=== PATIENT | female | born 1950 | race Caucasian/White ===

== ENCOUNTER 2022-05-15 14:32 | Inpatient (IN) | payer MEDICAID ==
[~2022-05-15] VITALS: Ht 165.1 cm; Wt 103.4 kg
[~2022-05-15 14:32] MED LIST: BENA-8 MT; GLIP10TA10 MT; METF-416 MT
[2022-05-15] MEDS ORDERED: ATROPINE SULFATE 1MG/ML VIAL IV ONE (16:00)
[2022-05-15 16:09] LABS: CHLORIDE 91 mEq/L (98-107); MEAN CORPUSCULAR HEMOGLOBIN 29.2 pg (28.0-32.0); MEAN CORPUSCULAR VOLUME 94.2 fL (81.0-99.0); MEAN PLATELET VOLUME 9.3 fl (7.4-10.4); PLATELET 312 x1000/uL (130-400); RED BLOOD CELL COUNT 2.29 mill/uL (4.2-5.4); RED CELL DISTRIBUTION WIDTH 18.2 % (11.6-14.6)
[2022-05-15 16:11] LABS: PROTHROMBIN TIME 10.5 sec (9.6-11.0)
[2022-05-15 16:14] LABS: HEMOGLOBIN. 6.7 g/dL (12.0-16.0)
[2022-05-15 16:15] LABS: HEMATOCRIT. 21.6 % (36.0-48.0)
[2022-05-15] MEDS ORDERED: CEFTRIAXONE 1 G PREMIX 50 ML IV NR (16:45)
[2022-05-15] MEDS ORDERED: ATROPINE SULFATE 1MG/10ML SYR IV ONE (16:45)
[2022-05-15] MEDS ORDERED: DOXYCYCLINE HYCLATE 100 MG/VIAL IV ONE (16:45)
[2022-05-15] MEDS ORDERED: INSULIN REGULAR (HUMULIN R) 300UNITS/3ML VIAL IV STA (16:51)
[2022-05-15] MEDS ORDERED: SODIUM BICARBONATE 8.4% 1 MEQ/ML 50ML SYR IV ONE (17:00)
[2022-05-15] MEDS ORDERED: CALCIUM GLUCONATE 1GM PREMIX 50 ML IV ONE (17:00)
[2022-05-15] MEDS ORDERED: ALBUTEROL (0.083%) 2.5MG/3ML NEB HHN ONE (17:00)
[2022-05-15] MEDS ORDERED: DEXTROSE 50% WATER 50ML SYRINGE IV ONE (17:00)
[2022-05-15] MEDS ORDERED: DOXYCYCLINE 100MG in DEXTROSE 5% WATER 100ML IV SCH (17:00)
[2022-05-15] MEDS ORDERED: DOBUTAMINE 250MG PREMIX 250 ML IV STA (17:41)
[2022-05-15] MEDS ORDERED: CALCIUM GLUCONATE 100MG/ML 10ML VIAL IV ONE (17:45)
[2022-05-15] MEDS ORDERED: DOBUTAMINE 250MG PREMIX 250 ML IV NR (17:48)
[2022-05-15 20:53] LABS: CLARITY URINE CLEAR (CLEAR); COLOR URINE YELLOW (YELLOW)
[2022-05-15 20:54] LABS: KETONES URINE NEGATIVE (NEGATIVE); LEUKOCYTE ESTERASE URINE NEGATIVE (NEGATIVE); NITRITE URINE NEGATIVE (NEGATIVE); OCCULT BLOOD URINE NEGATIVE (NEGATIVE); PROTEIN URINE NEGATIVE (NEGATIVE); UROBILINOGEN URINE 0.2 E.U./dL (0.2-1.0)
[2022-05-15 22:26] LABS: PLATELET ESTIMATE NORMAL
[2022-05-16] VITALS (87 sets, daily range): BP systolic 50–164; BP diastolic 14–104
[2022-05-16] MEDS ORDERED: DEXTROSE 50% WATER 50ML SYRINGE IV PRN
[2022-05-16] MEDS ORDERED: IPRATROPIUM/ALBUTEROL 0.5-3(2.5)MG/3ML NEB HHN PRN
[2022-05-16] MEDS ORDERED: DEXT 5%/0.9% NACL 1,000 ML IV SCH (00:15)
[2022-05-16] MEDS: IPRATROPIUM/ALBUTEROL 0.5-3(2.5)MG/3ML NEB HHN SCH ×4 (01:19→19:38)
[2022-05-16] MEDS: DOPAMINE 800MG PREMIX (DOUBLE) 250 ML IV PRN ×3 (01:20→21:06)
[2022-05-16] MEDS ORDERED: VANCOMYCIN 2,000 MG in SODIUM CHLORIDE 0.9% 500 ML IV NR (01:30)
[2022-05-16] MEDS ORDERED: INSULIN REGULAR (HUMULIN R) 300UNITS/3ML VIAL IV NR ×4 (01:45→22:00)
[2022-05-16] MEDS ORDERED: CALCIUM GLUCONATE 1GM PREMIX 50 ML IV NR ×2 (01:45→06:15)
[2022-05-16] MEDS ORDERED: NOREPINEPHRINE 32 MG in DEXT 5% WATER 218 ML IV PRN (01:45)
[2022-05-16] MEDS ORDERED: ATROPINE SULFATE 1MG/10ML SYR IV NR (01:45)
[2022-05-16] MEDS ORDERED: SODIUM BICARBONATE 8.4% 1 MEQ/ML 50ML SYR IV NR ×2 (01:45→06:15)
[2022-05-16] MEDS ORDERED: DEXTROSE 50% WATER 50ML SYRINGE IV NR ×4 (01:45→22:00)
[2022-05-16] MEDS: BLOOD SUGAR DIAGNOSTIC STRIP TEST SCH ×4 (05:25→21:02)
[2022-05-16] MEDS: PIPERACILLIN/TAZOBACTAM 3.375 G in DEXTROSE 5% WATER 50 ML IV SCH ×3 (05:26→21:06)
[2022-05-16] MEDS: INSULIN LISPRO 100 UNITS/ML SUBCUT SCH ×4 (05:28→21:00)
[2022-05-16 05:37] LABS: HEMOGLOBIN 7.6 g/dL (12.0-16.0); MEAN CORPUSCULAR HEMOGLOBIN 30.6 pg (28.0-32.0); MEAN CORPUSCULAR VOLUME 97.1 fL (81.0-99.0); PLATELET 246 x1000/uL (130-400); RED BLOOD CELL COUNT 2.47 mill/uL (4.2-5.4); RED CELL DISTRIBUTION WIDTH 17.6 % (11.6-14.6)
[2022-05-16 05:43] LABS: CHLORIDE 93 mEq/L (98-107)
[2022-05-16] MEDS ORDERED: SODIUM POLYSTYRENE SULFONATE 15 G/60 ML BOT PO NR ×3 (06:15→22:00)
[2022-05-16] MEDS ORDERED: LACTULOSE 20G/30ML UDC PO NR (06:15)
[2022-05-16] MEDS ORDERED: ATROPINE SULFATE 1MG/ML VIAL IV PRN (06:30)
[2022-05-16 08:45] LABS: BG BASE EXCESS 1.8 mmol/L (-2.0-2.0); BG CARBOXYHEMOGLOBIN 0.4 % (0.5-1.5); BG DEOXYHEMOGLOBIN 9.1 % (0.0-5.0); BG FRACTION INSPIRED OXYGEN 50; BG HCO3 ACT 26.6 mmol/L (22.0-26.0); BG OXYGEN SATURATION 90.9 % (92.0-98.5); BG OXYHEMOGLOBIN 90.5 % (94.0-97.0); BG PCO2 42.7 mmHg (35.0-45.0); BG PH 7.412 (7.350-7.450); BG PO2 59.7 mmHg (75.0-100.0); BG SAMPLE SITE LEFT RADIAL; BG TOTAL HEMOGLOBIN 9.5 g/dL (12.0-18.0); BG VENT MODE VENT - AC
[2022-05-16] MEDS ORDERED: ENOXAPARIN 40MG/0.4ML SYR SUBCUT SCH (09:00)
[2022-05-16] MEDS: PANTOPRAZOLE SODIUM 40 MG/VIAL IV SCH (09:21)
[2022-05-16] MEDS ORDERED: METOLAZONE 2.5MG TABLET PEG NR (09:30)
[2022-05-16] MEDS: FUROSEMIDE 100MG/10ML VIAL IVP SCH ×3 (09:31→17:40)
[2022-05-16 13:14] LABS: CHLORIDE 91 mEq/L (98-107)
[2022-05-16 13:30] LABS: T4 FREE 1.07 ng/dL (0.76-1.46)
[2022-05-16 16:27] LABS: CHLORIDE 93 mEq/L (98-107)
[2022-05-16 17:15] LABS: SODIUM URINE RANDOM 31 mEq/L
[2022-05-16] MEDS: METOLAZONE 5MG TABLET PEG SCH (17:40)
[2022-05-16] MEDS: VANCOMYCIN 1GM PMX (XELLIA) 200 ML IV SCH (20:11)
[2022-05-16 20:52] LABS: CHLORIDE 93 mEq/L (98-107)
[2022-05-16] MEDS ORDERED: CALCIUM CHLORIDE 1,000 MG in DEXT 5% WATER 90 ML IV NR (23:00)
[2022-05-17] VITALS (90 sets, daily range): BP systolic 94–159; BP diastolic 19–96
[2022-05-17] MEDS: IPRATROPIUM/ALBUTEROL 0.5-3(2.5)MG/3ML NEB HHN SCH ×4 (01:54→20:25)
[2022-05-17 04:09] LABS: HEMATOCRIT. 26.3 % (36.0-48.0); HEMOGLOBIN. 8.4 g/dL (12.0-16.0); MEAN CORPUSCULAR HEMOGLOBIN 29.7 pg (28.0-32.0); MEAN CORPUSCULAR VOLUME 92.6 fL (81.0-99.0); MEAN PLATELET VOLUME 9.6 fl (7.4-10.4); PLATELET 311 x1000/uL (130-400); RED BLOOD CELL COUNT 2.84 mill/uL (4.2-5.4); RED CELL DISTRIBUTION WIDTH 17.3 % (11.6-14.6)
[2022-05-17 04:16] LABS: CHLORIDE 91 mEq/L (98-107)
[2022-05-17 04:27] LABS: CREATINE KINASE 32 IU/L (26-192); PHOSPHORUS 5.3 mg/dL (2.5-4.9)
[2022-05-17] MEDS: BLOOD SUGAR DIAGNOSTIC STRIP TEST SCH ×4 (06:13→21:08)
[2022-05-17] MEDS: INSULIN LISPRO 100 UNITS/ML SUBCUT SCH ×4 (06:13→21:00)
[2022-05-17] MEDS: PIPERACILLIN/TAZOBACTAM 3.375 G in DEXTROSE 5% WATER 50 ML IV SCH ×3 (06:36→21:08)
[2022-05-17] MEDS: DOPAMINE 800MG PREMIX (DOUBLE) 250 ML IV PRN (06:36)
[2022-05-17] MEDS ORDERED: SODIUM BICARBONATE 8.4% 1 MEQ/ML 50ML SYR IV SCH (09:00)
[2022-05-17] MEDS ORDERED: DEXTROSE 50% WATER 50ML SYRINGE IV SCH (09:00)
[2022-05-17] MEDS ORDERED: INSULIN REGULAR (HUMULIN R) 300UNITS/3ML VIAL IV SCH (09:00)
[2022-05-17] MEDS ORDERED: ENOXAPARIN 30MG/0.3ML SYR SUBCUT SCH (09:00)
[2022-05-17] MEDS: METOLAZONE 5MG TABLET PEG SCH ×2 (09:32→17:36)
[2022-05-17] MEDS: PANTOPRAZOLE SODIUM 40 MG/VIAL IV SCH (09:32)
[2022-05-17] MEDS: FUROSEMIDE 100MG/10ML VIAL IVP SCH ×3 (09:32→17:36)
[2022-05-17] MEDS: CITRIC ACID/SODIUM CITRATE SOLN 30ML UDC GT SCH ×3 (09:37→17:35)
[2022-05-17 10:23] LABS: PLATELET ESTIMATE NORMAL
[2022-05-17 10:44] LABS: BG BASE EXCESS 4.9 mmol/L (-2.0-2.0); BG CARBOXYHEMOGLOBIN 0.6 % (0.5-1.5); BG DEOXYHEMOGLOBIN 0.8 % (0.0-5.0); BG FRACTION INSPIRED OXYGEN 80; BG HCO3 ACT 30.6 mmol/L (22.0-26.0); BG METHEMOGLOBIN 0.4 % (0.0-1.5); BG OXYGEN SATURATION 99.2 % (92.0-98.5); BG OXYHEMOGLOBIN 98.2 % (94.0-97.0); BG PCO2 51.9 mmHg (35.0-45.0); BG PH 7.389 (7.350-7.450); BG PO2 148.3 mmHg (75.0-100.0); BG SAMPLE SITE RIGHT RADIAL; BG TOTAL HEMOGLOBIN 8.8 g/dL (12.0-18.0); BG VENT MODE VENT - AC
[2022-05-17] MEDS: VANCOMYCIN 1GM PMX (XELLIA) 200 ML IV SCH (14:00)
[2022-05-17] MEDS: DEXTROSE 10% WATER 500 ML IV SCH (17:36)
[2022-05-17] MEDS: BUDESONIDE 0.5MG/2ML NEB HHN SCH (20:24)
[2022-05-17 21:22] LABS: CHLORIDE 93 mEq/L (98-107)
[2022-05-18] VITALS (83 sets, daily range): BP systolic 66–150; BP diastolic 25–73
[2022-05-18] MEDS: IPRATROPIUM/ALBUTEROL 0.5-3(2.5)MG/3ML NEB HHN SCH ×4 (01:10→20:47)
[2022-05-18 04:46] LABS: HEMATOCRIT. 22.7 % (36.0-48.0); HEMOGLOBIN. 7.2 g/dL (12.0-16.0); MEAN CORPUSCULAR HEMOGLOBIN 29.9 pg (28.0-32.0); MEAN CORPUSCULAR VOLUME 93.6 fL (81.0-99.0); MEAN PLATELET VOLUME 9.4 fl (7.4-10.4); PLATELET 198 x1000/uL (130-400); RED BLOOD CELL COUNT 2.42 mill/uL (4.2-5.4); RED CELL DISTRIBUTION WIDTH 17.4 % (11.6-14.6)
[2022-05-18] MEDS: DOPAMINE 800MG PREMIX (DOUBLE) 250 ML IV PRN (05:22)
[2022-05-18] MEDS: INSULIN LISPRO 100 UNITS/ML SUBCUT SCH ×4 (06:18→21:00)
[2022-05-18] MEDS: BLOOD SUGAR DIAGNOSTIC STRIP TEST SCH ×4 (06:18→21:13)
[2022-05-18] MEDS: PIPERACILLIN/TAZOBACTAM 3.375 G in DEXTROSE 5% WATER 50 ML IV SCH ×3 (06:30→21:15)
[2022-05-18] MEDS: BUDESONIDE 0.5MG/2ML NEB HHN SCH (08:35)
[2022-05-18 08:53] LABS: BG BASE EXCESS 3.9 mmol/L (-2.0-2.0); BG CARBOXYHEMOGLOBIN 0.8 % (0.5-1.5); BG DEOXYHEMOGLOBIN 1.9 % (0.0-5.0); BG FRACTION INSPIRED OXYGEN 50; BG HCO3 ACT 27.8 mmol/L (22.0-26.0); BG METHEMOGLOBIN 0.2 % (0.0-1.5); BG OXYGEN SATURATION 98.1 % (92.0-98.5); BG OXYHEMOGLOBIN 97.1 % (94.0-97.0); BG PCO2 38.6 mmHg (35.0-45.0); BG PH 7.475 (7.350-7.450); BG PO2 98.2 mmHg (75.0-100.0); BG SAMPLE SITE RIGHT RADIAL; BG TOTAL HEMOGLOBIN 7.7 g/dL (12.0-18.0); BG VENT MODE VENT - AC
[2022-05-18] MEDS: PANTOPRAZOLE SODIUM 40 MG/VIAL IV SCH (09:24)
[2022-05-18] MEDS: METOLAZONE 5MG TABLET PEG SCH ×2 (09:24→18:11)
[2022-05-18] MEDS: FUROSEMIDE 100MG/10ML VIAL IVP SCH ×3 (09:24→18:11)
[2022-05-18 09:27] LABS: NUCLEATED RED BLOOD CELLS 1 /100 WBC
[2022-05-18 09:28] LABS: PLATELET ESTIMATE NORMAL
[2022-05-18] MEDS ORDERED: BISACODYL 10MG SUPP PR PRN (11:15)
[2022-05-18] MEDS: METOCLOPRAMIDE HCL 10MG/2ML VIAL IV SCH ×3 (12:03→23:18)
[2022-05-18] MEDS ORDERED: LIDOCAINE HCL 1% 30ML VIAL (10MG/ML) ONE (13:22)
[2022-05-18] MEDS: DEXTROSE 10% WATER 500 ML IV SCH (18:11)
[2022-05-19] VITALS (74 sets, daily range): BP systolic 110–159; BP diastolic 48–79
[2022-05-19] MEDS: IPRATROPIUM/ALBUTEROL 0.5-3(2.5)MG/3ML NEB HHN SCH ×4 (01:02→20:47)
[2022-05-19 05:20] LABS: MEAN CORPUSCULAR HEMOGLOBIN 30.3 pg (28.0-32.0); MEAN CORPUSCULAR VOLUME 94.1 fL (81.0-99.0); MEAN PLATELET VOLUME 9.5 fl (7.4-10.4); PLATELET 155 x1000/uL (130-400); RED BLOOD CELL COUNT 2.19 mill/uL (4.2-5.4); RED CELL DISTRIBUTION WIDTH 17.6 % (11.6-14.6)
[2022-05-19 05:34] LABS: HEMATOCRIT. 20.6 % (36.0-48.0)
[2022-05-19] MEDS: BLOOD SUGAR DIAGNOSTIC STRIP TEST SCH ×3 (05:34→21:00)
[2022-05-19] MEDS: PIPERACILLIN/TAZOBACTAM 3.375 G in DEXTROSE 5% WATER 50 ML IV SCH ×3 (05:34→21:57)
[2022-05-19] MEDS: METOCLOPRAMIDE HCL 10MG/2ML VIAL IV SCH ×3 (05:34→17:51)
[2022-05-19 05:37] LABS: HEMOGLOBIN. 6.6 g/dL (12.0-16.0)
[2022-05-19 06:00] LABS: PHOSPHORUS 6.1 mg/dL (2.5-4.9)
[2022-05-19] MEDS: INSULIN LISPRO 100 UNITS/ML SUBCUT SCH ×4 (06:17→21:00)
[2022-05-19 07:33] LABS: BG BASE EXCESS -2.2 mmol/L (-2.0-2.0); BG CARBOXYHEMOGLOBIN 0.6 % (0.5-1.5); BG DEOXYHEMOGLOBIN 0.9 % (0.0-5.0); BG HCO3 ACT 21.1 mmol/L (22.0-26.0); BG METHEMOGLOBIN 0.2 % (0.0-1.5); BG OXYGEN SATURATION 99.1 % (92.0-98.5); BG OXYHEMOGLOBIN 98.3 % (94.0-97.0); BG PH 7.465 (7.350-7.450); BG PO2 123.5 mmHg (75.0-100.0); BG SAMPLE SITE RIGHT RADIAL; BG TOTAL HEMOGLOBIN 7.6 g/dL (12.0-18.0); BG VENT MODE VENT - AC
[2022-05-19 08:42] LABS: PLATELET ESTIMATE NORMAL
[2022-05-19] MEDS: DEXT 5%/0.9% NACL 1,000 ML IV SCH (08:47)
[2022-05-19] MEDS: METOLAZONE 5MG TABLET PEG SCH ×2 (08:48→17:51)
[2022-05-19] MEDS: PANTOPRAZOLE SODIUM 40 MG/VIAL IV SCH (08:48)
[2022-05-19] MEDS: FUROSEMIDE 40MG/4ML VIAL IVP SCH ×3 (08:48→17:51)
[2022-05-19] MEDS ORDERED: POTASSIUM CHLORIDE INJ 40 MEQ in DEXT 5% WATER 250 ML IV ONE (09:00)
[2022-05-20] VITALS (15 sets, daily range): BP systolic 125–147; BP diastolic 59–91
[2022-05-20] MEDS: METOCLOPRAMIDE HCL 10MG/2ML VIAL IV SCH ×5 (00:24→23:40)
[2022-05-20] MEDS: IPRATROPIUM/ALBUTEROL 0.5-3(2.5)MG/3ML NEB HHN SCH ×4 (01:54→21:55)
[2022-05-20] MEDS: PIPERACILLIN/TAZOBACTAM 3.375 G in DEXTROSE 5% WATER 50 ML IV SCH ×3 (05:27→21:29)
[2022-05-20 05:58] LABS: PHOSPHORUS 5.6 mg/dL (2.5-4.9)
[2022-05-20 06:42] LABS: HEMATOCRIT. 28.5 % (36.0-48.0); HEMOGLOBIN. 9.4 g/dL (12.0-16.0); MEAN CORPUSCULAR VOLUME 91.1 fL (81.0-99.0); MEAN PLATELET VOLUME 9.8 fl (7.4-10.4); PLATELET 140 x1000/uL (130-400); RED BLOOD CELL COUNT 3.13 mill/uL (4.2-5.4); RED CELL DISTRIBUTION WIDTH 16.8 % (11.6-14.6)
[2022-05-20] MEDS: BLOOD SUGAR DIAGNOSTIC STRIP TEST SCH ×4 (07:30→20:41)
[2022-05-20] MEDS: INSULIN LISPRO 100 UNITS/ML SUBCUT SCH ×4 (08:00→23:40)
[2022-05-20] MEDS: FUROSEMIDE 40MG/4ML VIAL IVP SCH ×2 (10:08→19:01)
[2022-05-20] MEDS: DEXT 5%/0.9% NACL 1,000 ML IV SCH (10:08)
[2022-05-20] MEDS: PANTOPRAZOLE SODIUM 40 MG/VIAL IV SCH (10:08)
[2022-05-20 10:11] LABS: NUCLEATED RED BLOOD CELLS 1 /100 WBC; PLATELET ESTIMATE NORMAL
[2022-05-20] MEDS: KCL 20MEQ/100ML PREMIX 100 ML IV SCH ×2 (10:53→12:35)
[2022-05-20] MEDS ORDERED: ACETYLCYSTEINE 100MG/ML 10% VIAL 4ML INH SCH (14:00)
[2022-05-20] MEDS ORDERED: VANCOMYCIN 1G PREMIX 200 ML IV SCH (21:00)
[2022-05-21] VITALS (12 sets, daily range): BP systolic 103–131; BP diastolic 47–59
[2022-05-21] MEDS: IPRATROPIUM/ALBUTEROL 0.5-3(2.5)MG/3ML NEB HHN SCH ×4 (00:36→19:39)
[2022-05-21] MEDS: ACETYLCYSTEINE 200MG/ML 20% VIAL 4ML INH SCH (00:36)
[2022-05-21] MEDS: FUROSEMIDE 40MG/4ML VIAL IVP SCH ×2 (06:08→18:08)
[2022-05-21] MEDS: PIPERACILLIN/TAZOBACTAM 3.375 G in DEXTROSE 5% WATER 50 ML IV SCH ×3 (06:08→21:24)
[2022-05-21] MEDS: METOCLOPRAMIDE HCL 10MG/2ML VIAL IV SCH ×3 (06:08→18:08)
[2022-05-21 07:02] LABS: HEMATOCRIT. 29.1 % (36.0-48.0); HEMOGLOBIN. 9.6 g/dL (12.0-16.0); MEAN CORPUSCULAR HEMOGLOBIN 29.7 pg (28.0-32.0); MEAN CORPUSCULAR VOLUME 90.2 fL (81.0-99.0); MEAN PLATELET VOLUME 9.1 fl (7.4-10.4); PLATELET 98 x1000/uL (130-400); RED BLOOD CELL COUNT 3.23 mill/uL (4.2-5.4)
[2022-05-21 07:34] LABS: BG BASE EXCESS 4.8 mmol/L (-2.0-2.0); BG CARBOXYHEMOGLOBIN 0.4 % (0.5-1.5); BG DEOXYHEMOGLOBIN 2.8 % (0.0-5.0); BG HCO3 ACT 29.5 mmol/L (22.0-26.0); BG METHEMOGLOBIN 0.3 % (0.0-1.5); BG OXYGEN SATURATION 97.2 % (92.0-98.5); BG OXYHEMOGLOBIN 96.5 % (94.0-97.0); BG PCO2 44.6 mmHg (35.0-45.0); BG PH 7.439 (7.350-7.450); BG PO2 94.8 mmHg (75.0-100.0); BG SAMPLE SITE RIGHT RADIAL; BG TOTAL HEMOGLOBIN 10.2 g/dL (12.0-18.0); BG VENT MODE VENT - AC
[2022-05-21] MEDS: BLOOD SUGAR DIAGNOSTIC STRIP TEST SCH ×4 (08:22→21:23)
[2022-05-21] MEDS: DEXT 5%/0.9% NACL 1,000 ML IV SCH (08:30)
[2022-05-21 09:03] LABS: PLATELET ESTIMATE DECREASED
[2022-05-21] MEDS: PANTOPRAZOLE SODIUM 40 MG/VIAL IV SCH (09:18)
[2022-05-21] MEDS: INSULIN LISPRO 100 UNITS/ML SUBCUT SCH ×4 (09:20→21:25)
[2022-05-21] MEDS ORDERED: POTASSIUM CHLORIDE 20MEQ/PACKET PO NR (09:30)
[2022-05-21] MEDS ORDERED: POTASSIUM CHLORIDE INJ 60 MEQ in DEXT 5% WATER 250 ML IV ONE (09:30)
[2022-05-21] MEDS: KCL 20MEQ/100ML X 3 FOR TOTAL KCL 60MEQ/300ML IV SCH ×3 (11:52→16:23)
[2022-05-21] MEDS ORDERED: NYSTATIN POWDER 15GM TOP PRN (16:00)
[2022-05-21] MEDS ORDERED: POTASSIUM CHLORIDE INJ 40 MEQ in DEXT 5% WATER 500 ML IV NR (21:00)
[2022-05-22] VITALS (12 sets, daily range): BP systolic 117–153; BP diastolic 54–69
[2022-05-22] MEDS: METOCLOPRAMIDE HCL 10MG/2ML VIAL IV SCH ×5 (00:10→23:59)
[2022-05-22] MEDS: IPRATROPIUM/ALBUTEROL 0.5-3(2.5)MG/3ML NEB HHN SCH ×4 (02:01→20:27)
[2022-05-22] MEDS: ACETYLCYSTEINE 200MG/ML 20% VIAL 4ML INH SCH ×3 (02:02→14:30)
[2022-05-22 06:41] LABS: HEMATOCRIT. 29.3 % (36.0-48.0); HEMOGLOBIN. 9.6 g/dL (12.0-16.0); MEAN CORPUSCULAR HEMOGLOBIN 29.7 pg (28.0-32.0); MEAN CORPUSCULAR VOLUME 90.3 fL (81.0-99.0); PLATELET 70 x1000/uL (130-400); RED BLOOD CELL COUNT 3.24 mill/uL (4.2-5.4); RED CELL DISTRIBUTION WIDTH 16.7 % (11.6-14.6)
[2022-05-22] MEDS: PIPERACILLIN/TAZOBACTAM 3.375 G in DEXTROSE 5% WATER 50 ML IV SCH ×3 (06:53→21:40)
[2022-05-22] MEDS: BLOOD SUGAR DIAGNOSTIC STRIP TEST SCH ×4 (07:30→21:40)
[2022-05-22 07:55] LABS: CHLORIDE 99 mEq/L (98-107)
[2022-05-22 08:04] LABS: PHOSPHORUS 4.3 mg/dL (2.5-4.9)
[2022-05-22] MEDS: PANTOPRAZOLE SODIUM 40 MG/VIAL IV SCH (08:28)
[2022-05-22] MEDS: FUROSEMIDE 40MG/4ML VIAL IVP SCH ×2 (08:28→17:41)
[2022-05-22] MEDS: POTASSIUM CHLORIDE 20MEQ/PACKET PO SCH ×2 (08:34→08:39)
[2022-05-22 09:41] LABS: PLATELET ESTIMATE DECREASED
[2022-05-22] MEDS: INSULIN LISPRO 100 UNITS/ML SUBCUT SCH ×4 (11:02→21:39)
[2022-05-23] VITALS (9 sets, daily range): BP systolic 92–138; BP diastolic 60–70
[2022-05-23] MEDS: IPRATROPIUM/ALBUTEROL 0.5-3(2.5)MG/3ML NEB HHN SCH ×2 (01:43→09:02)
[2022-05-23] MEDS: ACETYLCYSTEINE 200MG/ML 20% VIAL 4ML INH SCH ×3 (01:43→16:35)
[2022-05-23] MEDS: PIPERACILLIN/TAZOBACTAM 3.375 G in DEXTROSE 5% WATER 50 ML IV SCH ×2 (06:13→13:50)
[2022-05-23] MEDS: METOCLOPRAMIDE HCL 10MG/2ML VIAL IV SCH ×2 (06:13→12:51)
[2022-05-23 06:49] LABS: HEMATOCRIT. 30.4 % (36.0-48.0); HEMOGLOBIN. 9.8 g/dL (12.0-16.0); MEAN CORPUSCULAR HEMOGLOBIN 29.8 pg (28.0-32.0); MEAN CORPUSCULAR VOLUME 92.1 fL (81.0-99.0); MEAN PLATELET VOLUME 10.1 fl (7.4-10.4); PLATELET 71 x1000/uL (130-400); RED BLOOD CELL COUNT 3.31 mill/uL (4.2-5.4); RED CELL DISTRIBUTION WIDTH 17.4 % (11.6-14.6)
[2022-05-23 06:51] LABS: CHLORIDE 102 mEq/L (98-107)
[2022-05-23] MEDS: BLOOD SUGAR DIAGNOSTIC STRIP TEST SCH ×2 (07:30→12:44)
[2022-05-23 08:48] LABS: PLATELET ESTIMATE DECREASED
[2022-05-23] MEDS: FUROSEMIDE 40MG/4ML VIAL IVP SCH (09:25)
[2022-05-23] MEDS: PANTOPRAZOLE SODIUM 40 MG/VIAL IV SCH (09:25)
[2022-05-23] MEDS: INSULIN LISPRO 100 UNITS/ML SUBCUT SCH ×2 (09:27→12:58)
[2022-05-23] MEDS ORDERED: POTASSIUM CHLORIDE INJ 40 MEQ in DEXT 5% WATER 500 ML IV NR (09:30)
[2022-05-23] MEDS: POTASSIUM CHLORIDE 20MEQ/PACKET PO SCH (09:41)
[2022-05-23] MEDS ORDERED: HYDROCODONE/ACETAMINOPHEN 5/325MG TABLET PO PRN (15:15)
[2022-05-23] MEDS ORDERED: NALOXONE HCL 0.4MG/ML VIAL IV PRN (15:15)
[2022-05-23] MEDS ORDERED: POTASSIUM CHLORIDE 20MEQ/PACKET PO SCH (17:00)
[2022-05-24] MEDS ORDERED: FUROSEMIDE 40MG/4ML VIAL IVP SCH (09:00)
== END 2022-05-23 17:40 | DRG 720 ==
LOC: ER 14:32 → MICUNO 17:58 → 5EST 05-19 17:50
PROVIDERS: ADMIT Internal Medicine; ATTEND Internal Medicine
PROC: 5A1955Z Respiratory Ventilation, Greater than 96 Consecutive Hours (ICD-10-PCS; principal; 2022-05-15)
PROC: 30233N1 Transfusion of Nonautologous Red Blood Cells into Peripheral Vein, Percutaneous Approach (ICD-10-PCS; 2022-05-15)
PROC: 02HV33Z Insertion of Infusion Device into Superior Vena Cava, Percutaneous Approach (ICD-10-PCS; 2022-05-16)
PROC: 02HV33Z Insertion of Infusion Device into Superior Vena Cava, Percutaneous Approach (ICD-10-PCS; 2022-05-18)
PROC: B548ZZA Ultrasonography of Superior Vena Cava, Guidance (ICD-10-PCS; 2022-05-18)
DX: A41.9 Sepsis, unspecified organism (principal); J80 Acute respiratory distress syndrome; R65.21 Severe sepsis with septic shock; J18.9 Pneumonia, unspecified organism; E43 Unspecified severe protein-calorie malnutrition; I50.33 Acute on chronic diastolic (congestive) heart failure; N17.9 Acute kidney failure, unspecified; E87.1 Hypo-osmolality and hyponatremia; D63.8 Anemia in other chronic diseases classified elsewhere; Z20.822 Contact with and (suspected) exposure to COVID-19; E78.00 Pure hypercholesterolemia, unspecified; E11.9 Type 2 diabetes mellitus without complications; E87.5 Hyperkalemia; E87.6 Hypokalemia; E88.09 Other disorders of plasma-protein metabolism, not elsewhere classified; E66.9 Obesity, unspecified; I11.0 Hypertensive heart disease with heart failure; R13.10 Dysphagia, unspecified; Z93.0 Tracheostomy status; Z99.11 Dependence on respirator [ventilator] status; Z86.73 Personal history of transient ischemic attack (TIA), and cerebral infarction without residual deficits; Z93.1 Gastrostomy status; Z68.37 Body mass index [BMI] 37.0-37.9, adult; Z79.4 Long term (current) use of insulin
CPT/HCPCS: 36415; 36573; 36600; 71045; 76604; 76700; 80048; 80053; 80202; 81003; 82375; 82533; 82550; 82805; 82962; 83036; 83735; 83880; 83930; 83935; 84100; 84132; 84145; 84300; 84439; 84443; 84481; 84484; 84550; 85025; 85027; 86850; 86900; 86920; 87070; 87426; 93005; 93306; 94002; 94003; 94640; 99291; A6261; C1725; C9113; J0461; J0610; J0696; J1250; J1265; J1815; J1940; J2543; J2765; J3370; J3480; J3490; J7040; J7042; J7060; J7608; J7626; P9016

== ENCOUNTER 2022-06-08 12:45 | Inpatient (IN) | payer MEDICAID, OTHER ==
[2022-06-08] VITALS (21 sets, daily range): BP systolic 60–127; BP diastolic 37–77
[~2022-06-08] VITALS: Ht 165.1 cm; Wt 108.0 kg
[2022-06-08] MEDS ORDERED: NOREPINEPHRINE 8MG/250ML PMX 250 ML IV STA (12:58)
[2022-06-08] MEDS ORDERED: SODIUM CHLORIDE 0.9% 1,000 ML IV ONE ×2 (13:00→21:00)
[2022-06-08] MEDS ORDERED: PIPERACILLIN/TAZ 3.375G PREMIX 50 ML IV ONE (13:15)
[2022-06-08] MEDS ORDERED: VANCOMYCIN 1G PREMIX 200 ML IV ONE (13:15)
[2022-06-08 13:31] LABS: HEMATOCRIT. 29.7 % (36.0-48.0); HEMOGLOBIN. 9.3 g/dL (12.0-16.0); MEAN CORPUSCULAR VOLUME 95.1 fL (81.0-99.0); MEAN PLATELET VOLUME 11.5 fl (7.4-10.4); PLATELET 57 x1000/uL (130-400); RED BLOOD CELL COUNT 3.12 mill/uL (4.2-5.4)
[2022-06-08 13:43] LABS: INR 1.1; PROTHROMBIN TIME 12.2 sec (9.6-11.0)
[2022-06-08 13:55] LABS: CHLORIDE 81 mEq/L (98-107)
[2022-06-08 14:18] LABS: ATYPICAL LYMPHOCYTES 1; NUCLEATED RED BLOOD CELLS 259 /100 WBC; PLATELET ESTIMATE DECREASED
[2022-06-08 14:38] LABS: CLARITY URINE TURBID (CLEAR); COLOR URINE ORANGE (YELLOW); KETONES URINE NEGATIVE (NEGATIVE); LEUKOCYTE ESTERASE URINE 3+ (NEGATIVE); NITRITE URINE NEGATIVE (NEGATIVE); OCCULT BLOOD URINE 3+ (NEGATIVE); PROTEIN URINE 3+ (NEGATIVE); SPECIFIC GRAVITY URINE 1.014 (1.005-1.030); UROBILINOGEN URINE 0.2 E.U./dL (0.2-1.0)
[2022-06-08] MEDS ORDERED: VANCOMYCIN 1,000 MG in DEXT 5% WATER 250 ML IV NR ×2 (15:45→21:00)
[2022-06-08] MEDS ORDERED: FUROSEMIDE 40MG/4ML VIAL IVP NR (19:30)
[2022-06-08] MEDS ORDERED: ACETAMINOPHEN 650MG/20.3ML UDC PO PRN (19:30)
[2022-06-08] MEDS ORDERED: CEFEPIME 2,000 MG in DEXT 5% WATER 100 ML IV SCH ×2 (20:30→22:00)
[2022-06-08] MEDS ORDERED: HEPARIN 5000 UNITS/ML VIAL SUBCUT SCH (21:00)
[2022-06-08] MEDS: METOCLOPRAMIDE 10MG/10 ML UDC PO SCH (21:03)
[2022-06-08] MEDS: BLOOD SUGAR DIAGNOSTIC STRIP TEST SCH (21:04)
[2022-06-08] MEDS: INSULIN LISPRO 100 UNITS/ML SUBCUT SCH (21:06)
[2022-06-08] MEDS: NOREPINEPHRINE 32 MG in DEXT 5% WATER 218 ML IV PRN (21:08)
[2022-06-08] MEDS: FUROSEMIDE 40MG/4ML VIAL IVP SCH (21:24)
[2022-06-09] VITALS (78 sets, daily range): BP systolic 46–194; BP diastolic 21–116
[2022-06-09] MEDS: METOCLOPRAMIDE 10MG/10 ML UDC PO SCH ×4 (01:00→20:32)
[2022-06-09 01:05] LABS: BG BASE EXCESS -12.6 mmol/L (-2.0-2.0); BG CARBOXYHEMOGLOBIN 0.3 % (0.5-1.5); BG DEOXYHEMOGLOBIN 12.2 % (0.0-5.0); BG FRACTION INSPIRED OXYGEN 100; BG HCO3 ACT 16.4 mmol/L (22.0-26.0); BG METHEMOGLOBIN 0.4 % (0.0-1.5); BG OXYGEN SATURATION 87.7 % (92.0-98.5); BG OXYHEMOGLOBIN 87.1 % (94.0-97.0); BG PCO2 51.7 mmHg (35.0-45.0); BG PH 7.118 (7.350-7.450); BG PO2 61.8 mmHg (75.0-100.0); BG SAMPLE SITE LEFT RADIAL; BG TOTAL HEMOGLOBIN 10.3 g/dL (12.0-18.0); BG VENT MODE VENT - AC
[2022-06-09] MEDS ORDERED: SODIUM BICARBONATE 8.4% 1 MEQ/ML 50ML SYR IV NR ×3 (01:15→19:30)
[2022-06-09] MEDS: FUROSEMIDE 40MG/4ML VIAL IVP SCH ×3 (05:47→20:32)
[2022-06-09] MEDS: NOREPINEPHRINE 32 MG in DEXT 5% WATER 218 ML IV PRN ×3 (06:39→17:47)
[2022-06-09 06:54] LABS: HEMATOCRIT. 30.1 % (36.0-48.0); HEMOGLOBIN. 9.5 g/dL (12.0-16.0); MEAN CORPUSCULAR VOLUME 95.1 fL (81.0-99.0); MEAN PLATELET VOLUME 10.7 fl (7.4-10.4); PLATELET 32 x1000/uL (130-400); RED BLOOD CELL COUNT 3.16 mill/uL (4.2-5.4); RED CELL DISTRIBUTION WIDTH 17.7 % (11.6-14.6)
[2022-06-09] MEDS: INSULIN LISPRO 100 UNITS/ML SUBCUT SCH ×4 (08:20→20:06)
[2022-06-09] MEDS: BLOOD SUGAR DIAGNOSTIC STRIP TEST SCH ×4 (08:24→20:06)
[2022-06-09] MEDS: DEXTROSE 50% WATER 50ML SYRINGE IV PRN ×4 (08:30→20:06)
[2022-06-09 08:42] LABS: BG BASE EXCESS -11.8 mmol/L (-2.0-2.0); BG CARBOXYHEMOGLOBIN 0.2 % (0.5-1.5); BG DEOXYHEMOGLOBIN 17.1 % (0.0-5.0); BG FRACTION INSPIRED OXYGEN 100; BG HCO3 ACT 16.2 mmol/L (22.0-26.0); BG METHEMOGLOBIN 0.2 % (0.0-1.5); BG OXYGEN SATURATION 82.8 % (92.0-98.5); BG OXYHEMOGLOBIN 82.5 % (94.0-97.0); BG PCO2 45.6 mmHg (35.0-45.0); BG PH 7.169 (7.350-7.450); BG PO2 50.9 mmHg (75.0-100.0); BG SAMPLE SITE RIGHT RADIAL; BG TOTAL HEMOGLOBIN 10.5 g/dL (12.0-18.0); BG VENT MODE VENT - AC
[2022-06-09] MEDS ORDERED: ASCORBIC ACID 500 MG TABLET PO SCH (09:00)
[2022-06-09] MEDS ORDERED: PANTOPRAZOLE SODIUM 40 MG/VIAL IV SCH (09:00)
[2022-06-09 10:56] LABS: NUCLEATED RED BLOOD CELLS 327 /100 WBC
[2022-06-09 10:57] LABS: PLATELET ESTIMATE MARKEDLY DECREASED
[2022-06-09] MEDS ORDERED: PHENYLEPHRINE 100 MG in DEXT 5% WATER 240 ML IV PRN (11:30)
[2022-06-09 11:42] LABS: BG BASE EXCESS -10.2 mmol/L (-2.0-2.0); BG CARBOXYHEMOGLOBIN 0.1 % (0.5-1.5); BG DEOXYHEMOGLOBIN 12.5 % (0.0-5.0); BG HCO3 ACT 16.4 mmol/L (22.0-26.0); BG METHEMOGLOBIN 0.3 % (0.0-1.5); BG OXYGEN SATURATION 87.4 % (92.0-98.5); BG OXYHEMOGLOBIN 87.1 % (94.0-97.0); BG PH 7.242 (7.350-7.450); BG PO2 54.6 mmHg (75.0-100.0); BG SAMPLE SITE RIGHT RADIAL; BG TOTAL HEMOGLOBIN 10.3 g/dL (12.0-18.0); BG VENT MODE VENT - AC
[2022-06-09] MEDS ORDERED: SODIUM BICARBONATE 100 MEQ in SODIUM CHLORIDE 0.45% 1,000 ML IV SCH (13:30)
[2022-06-09] MEDS ORDERED: SODIUM BICARBONATE 100 MEQ in DEXTROSE 5% WATER 1,000 ML IV SCH (14:00)
[2022-06-09] MEDS ORDERED: MEROPENEM 500 MG in SODIUM CHLORIDE 0.9% 50 ML IV SCH (14:00)
[2022-06-09] MEDS ORDERED: ALBUMIN HUMAN 25GM/500ML (5%) IV PRN (14:15)
[2022-06-09] MEDS ORDERED: AMIKACIN SULFATE 600 MG in SODIUM CHLORIDE 0.9% 100 ML IV NR (15:00)
[2022-06-09 16:44] LABS: HEPATITIS B SURFACE ANTIGEN NEGATIVE
[2022-06-09 19:06] LABS: BG BASE EXCESS -15.9 mmol/L (-2.0-2.0); BG CARBOXYHEMOGLOBIN 0.2 % (0.5-1.5); BG DEOXYHEMOGLOBIN 22.2 % (0.0-5.0); BG FRACTION INSPIRED OXYGEN 100; BG HCO3 ACT 13.6 mmol/L (22.0-26.0); BG METHEMOGLOBIN 0.3 % (0.0-1.5); BG OXYGEN SATURATION 77.7 % (92.0-98.5); BG OXYHEMOGLOBIN 77.3 % (94.0-97.0); BG PCO2 47.8 mmHg (35.0-45.0); BG PH 7.071 (7.350-7.450); BG PO2 50.2 mmHg (75.0-100.0); BG SAMPLE SITE RIGHT RADIAL; BG TOTAL HEMOGLOBIN 9.8 g/dL (12.0-18.0); BG VENT MODE VENT - AC
[2022-06-09] MEDS ORDERED: VASOPRESSIN 20 UNIT in SODIUM CHLORIDE 0.9% 99 ML IV PRN (19:30)
[2022-06-09] MEDS ORDERED: MEROPENEM 1000MG in NORMAL SALINE 100ML IV SCH (21:00)
== END 2022-06-09 23:45 | DRG 720 ==
LOC: ER 12:45 → 7WST 12:51 → EDBEDREQSVC 14:34 → EDBEDREQTM 14:34 → EDBEDREQ 14:34 → CVICU 18:33
PROVIDERS: ADMIT Internal Medicine; ATTEND Internal Medicine
PROC: 5A1945Z Respiratory Ventilation, 24-96 Consecutive Hours (ICD-10-PCS; principal; 2022-06-08)
PROC: 5A12012 Performance of Cardiac Output, Single, Manual (ICD-10-PCS; 2022-06-09)
PROC: 30233R1 Transfusion of Nonautologous Platelets into Peripheral Vein, Percutaneous Approach (ICD-10-PCS; 2022-06-09)
DX: A41.50 Gram-negative sepsis, unspecified (principal); I46.9 Cardiac arrest, cause unspecified; J96.20 Acute and chronic respiratory failure, unspecified whether with hypoxia or hypercapnia; R65.21 Severe sepsis with septic shock; E43 Unspecified severe protein-calorie malnutrition; D69.6 Thrombocytopenia, unspecified; G93.49 Other encephalopathy; E11.649 Type 2 diabetes mellitus with hypoglycemia without coma; E87.1 Hypo-osmolality and hyponatremia; E87.20 Acidosis, unspecified; J18.9 Pneumonia, unspecified organism; I11.0 Hypertensive heart disease with heart failure; N17.9 Acute kidney failure, unspecified; I50.32 Chronic diastolic (congestive) heart failure; D64.9 Anemia, unspecified; R13.10 Dysphagia, unspecified; N39.0 Urinary tract infection, site not specified; I48.91 Unspecified atrial fibrillation; I47.1 Supraventricular tachycardia; I44.0 Atrioventricular block, first degree; K21.9 Gastro-esophageal reflux disease without esophagitis; G47.33 Obstructive sleep apnea (adult) (pediatric); R00.1 Bradycardia, unspecified; E66.9 Obesity, unspecified; S20.101A Unspecified superficial injuries of breast, right breast, initial encounter; S70.912A Unspecified superficial injury of left hip, initial encounter; S30.92XA Unspecified superficial injury of abdominal wall, initial encounter; Z20.822 Contact with and (suspected) exposure to COVID-19; Z68.39 Body mass index [BMI] 39.0-39.9, adult; Z79.899 Other long term (current) drug therapy; Z93.1 Gastrostomy status; Z93.0 Tracheostomy status; Z99.11 Dependence on respirator [ventilator] status; Z87.01 Personal history of pneumonia (recurrent); Z86.73 Personal history of transient ischemic attack (TIA), and cerebral infarction without residual deficits; X58.XXXA Exposure to other specified factors, initial encounter; Y93.89 Activity, other specified; Y92.89 Other specified places as the place of occurrence of the external cause; Y99.8 Other external cause status
CPT/HCPCS: 31500; 36415; 36600; 71045; 80048; 80053; 80061; 81003; 82375; 82570; 82805; 82962; 83036; 83605; 83930; 83935; 84145; 84156; 84443; 84484; 85025; 86705; 86709; 86803; 86850; 86900; 87070; 87077; 87186; 87340; 87426; 93005; 94003; 99291; C9113; C9803; J0278; J0692; J1815; J1940; J2185; J2370; J2543; J3370; J3490; J7030; J7050; J7060; J7070; J8597; P9034; A4315